=== PATIENT | female | born 1980 | race Hispanic/Latino ===

== ENCOUNTER 2019-03-07 18:39 | Emergency (ER) | payer MEDICAID ==
[2019-03-07 18:58] VITALS: BP 116/75; PULSE 70; RESP 11; TEMP 98.3; O2SAT 98
== END 2019-03-07 19:11 | disposition left against medical advice (07) ==
LOC: C.ER 18:39
DX: Z02.89 Encounter for other administrative examinations (principal); R68.84 Jaw pain

== ENCOUNTER 2019-03-07 19:39 | Emergency (ER) | payer MEDICAID | END 2019-03-07 21:43 | disposition home or self-care (01) | LOC: C.ER 19:39 ==